=== PATIENT | female | born 1985 | race Two or more races ===

== ENCOUNTER 2020-01-13 22:42 | Emergency (ER) | payer SELFPAY ==
[~2020-01-13] VITALS: Ht 152.4 cm; Wt 81.6 kg
[2020-01-13 22:42] VITALS: BP 143/106
== END 2020-01-14 00:52 | disposition home or self-care (01) ==
LOC: ER 22:43
DX: R07.89 Other chest pain (principal); R06.00 Dyspnea, unspecified
CPT/HCPCS: 71045-TC